=== PATIENT | female | born 1960 | race African-American/Black ===

== ENCOUNTER 2019-02-28 14:37 | Emergency (ER) | payer OTHER, MEDICAID ==
[~2019-02-28] VITALS: Ht 165.1 cm; Wt 160.0 kg
[~2019-02-28 14:37] MED LIST: ATEN-42 PO; BACL-141 PO; BUDE0.5A3 IH; CLON0.1T PO; DABI150C PO; DOCU250C69 PO; FURO-151 PO; HYDR-4009 PO; LACT10SO7 PO; MAGN400T26 PO; METH500T PO; METO2.5T14 PO; MULT-1146 PO; POTA10CA42 PO
[2019-02-28] MEDS ORDERED: SODIUM CHLORIDE 0.9% 1,000 ML IV ONE ×3 (14:50→15:49)
[2019-02-28 15:18] LABS: BASOPHILS % 0.3 % (0.0-2.0); EOSINOPHILS % 0.1 % (0.0-5.0); HEMATOCRIT. 44.9 % (36.0-48.0); MEAN CORPUSCULAR HEMOGLOBIN 31.4 pg (28.0-32.0); MEAN CORPUSCULAR VOLUME 94.1 fL (81.0-99.0); MEAN PLATELET VOLUME 10.4 fl (7.4-10.4); MONOCYTES % 8.7 % (2.0-8.0); NEUTROPHILS % 71.9 % (40.0-76.0); PLATELET 163 x1000/uL (130-400); RED BLOOD CELL COUNT 4.77 mill/uL (4.2-5.4); RED CELL DISTRIBUTION WIDTH 12.8 % (11.6-14.6)
[2019-02-28 15:25] LABS: CHLORIDE 106 mEq/L (98-107)
[2019-02-28 15:26] LABS: INR 1.2; PROTHROMBIN TIME 11.9 sec (9.6-11.0)
[2019-02-28 15:29] LABS: ETHANOL BLOOD < 10 mg/dL
[2019-02-28] MEDS ORDERED: ASPIRIN 81MG TABLET PO ONE (16:15)
[2019-02-28 16:50] VITALS: BP 160/81
== END 2019-02-28 20:19 | disposition short-term general hospital (02) ==
LOC: ER 14:52 → CANBEDREQ 22:18
DX: R07.9 Chest pain, unspecified (principal); I11.0 Hypertensive heart disease with heart failure; I50.9 Heart failure, unspecified; E11.9 Type 2 diabetes mellitus without complications; I25.2 Old myocardial infarction; E78.00 Pure hypercholesterolemia, unspecified; M19.90 Unspecified osteoarthritis, unspecified site; Z88.0 Allergy status to penicillin; Z88.8 Allergy status to other drugs, medicaments and biological substances; Z86.711 Personal history of pulmonary embolism; Z86.718 Personal history of other venous thrombosis and embolism; Z90.49 Acquired absence of other specified parts of digestive tract; Z90.710 Acquired absence of both cervix and uterus; Z91.011 Allergy to milk products; Z91.040 Latex allergy status
CPT/HCPCS: 36415; 71045; 80053; 80320; 82962; 83605; 83690; 83735; 83880; 84145; 84484; 85025; 85610; 87040; 87077; 87186; 96360; 96361; 99285; J7030; G0480